=== PATIENT | male | born 1995 | race Hispanic/Latino ===

== ENCOUNTER 2019-09-19 19:26 | Emergency (ER) | payer BC ==
--- NOTE | 2019-09-19 20:38 | EDPHYS ---
Physician Documentation [facility] Name: Jovany Christopher Jr Age: 24 yrs Sex: Male : 1995 Arrival Date: 09/19/2019 Time: 19:29 Bed 28 Private MD: ED Physician Roby Mcmanus HPI: 09/19 19:42 This 24 yrs old Male presents to ER via Unassigned with complaints of Hand kb Injury, Hand Pain. 19:42 The patient or guardian reports pain, tenderness. The complaints affect the dorsal kb aspect of middle phalanx of left index finger. Context: The problem was sustained at work, resulted from a direct blow, by a heavy object. Onset: The symptoms/episode began/occurred 2 week(s) ago. Modifying factors: The symptoms are alleviated by nothing, the symptoms are aggravated by nothing. Associated signs and symptoms: The patient has no apparent associated signs or symptoms. Severity of symptoms: At their worst the symptoms were mild, in the emergency department the symptoms are unchanged. The patient has not experienced similar symptoms in the past. The patient has not recently seen a physician. Pt reports his finger got hurt a couple of weeks ago and he never got it checked out. Today he sat on it and it started hurting again. Historical: - Allergies: 19:46 No Known Allergies; tl2 - Home Meds: 19:46 None [Active]; tl2 - PMHx: 19:46 None; tl2 - PSHx: 19:46 None; tl2 - Immunization history:: Adult Immunizations up to date. - Social history:: Smoking status: Patient uses tobacco products, smokes one-half pack cigarettes per day. - Ebola Screening: : No symptoms or risks identified at this time. ROS: 19:42 Constitutional: Negative for fever, chills, and weight loss, Cardiovascular: Negative kb for chest pain, palpitations, and edema, Respiratory: Negative for shortness of breath, cough, wheezing, and pleuritic chest pain, Abdomen/GI: Negative for abdominal pain, nausea, vomiting, diarrhea, and constipation, Back: Negative for injury and pain, Skin: Negative for injury, rash, and discoloration, Neuro: Negative for headache, weakness, numbness, tingling, and seizure. 19:42 MS/extremity: Positive for injury or acute deformity, pain, tenderness, of the dorsal aspect of middle phalanx of left index finger. Exam: 19:42 Constitutional: This is a well developed, well nourished patient who is awake, alert, kb and in no acute distress. Head/Face: Normocephalic, atraumatic. ENT: Nares patent. No nasal discharge, no septal abnormalities noted. Tympanic membranes are normal and external auditory canals are clear. Oropharynx with no redness, swelling, or masses, exudates, or evidence of obstruction, uvula midline. Mucous membranes moist. Neck: Trachea midline, no thyromegaly or masses palpated, and no cervical lymphadenopathy. Supple, full range of motion without nuchal rigidity, or vertebral point tenderness. No Meningismus. Chest/axilla: Normal chest wall appearance and motion. Nontender with no deformity. No lesions are appreciated. Cardiovascular: Regular rate and rhythm with a normal S1 and S2. No gallops, murmurs, or rubs. Normal PMI, no JVD. No pulse deficits. Respiratory: Lungs have equal breath sounds bilaterally, clear to auscultation and percussion. No rales, rhonchi or wheezes noted. No increased work of breathing, no retractions or nasal flaring. Abdomen/GI: Soft, non-tender, with normal bowel sounds. No distension or tympany. No guarding or rebound. No evidence of tenderness throughout. Back: No spinal tenderness. No costovertebral tenderness. Full range of motion. Skin: Warm, dry with normal turgor. Normal color with no rashes, no lesions, and no evidence of cellulitis. Neuro: Awake and alert, GCS 15, oriented to person, place, time, and situation. Cranial nerves II-XII grossly intact. Motor strength 5/5 in all extremities. Sensory grossly intact. Cerebellar exam normal. Normal gait. 19:42 Musculoskeletal/extremity: Extremities: grossly normal except: noted in the dorsal aspect of middle phalanx of left index finger: pain, tenderness, ROM: intact in all extremities, Circulation is intact in all extremities. Sensation intact. Vital Signs: 19:46 BP 127 / 77; Pulse 85; Resp 18; Temp 98(O); Pulse Ox 100% on R/A; Weight 63.5 kg; tl2 Height 5 ft. 7 in. (170.18 cm); Pain 9/10; 19:48 BP 127 / 77; Pulse 86; Resp 17 S; Temp 98.1(O); Pulse Ox 100% on R/A; Weight 65.77 kg ca1 (R); Height 5 ft. 5 in. (165.10 cm) (R); Pain 0/10; 19:48 Body Mass Index 24.13 (65.77 kg, 165.10 cm) ca1 MDM: 19:37 Patient medically screened. kb 19:42 Data reviewed: vital signs, nurses notes. Data interpreted: Pulse oximetry: on room air kb is 100 %. Interpretation: normal. 20:31 Counseling: I had a detailed discussion with the patient and/or guardian regarding: the kb historical points, exam findings, and any diagnostic results supporting the discharge/admit diagnosis, radiology results, the need for outpatient follow up, a family practitioner, to return to the emergency department if symptoms worsen or persist or if there are any questions or concerns that arise at home. 09/19 19:39 Order name: Hand Left 3 View XRAY kb Administered Medications: No medications were administered Disposition: 09/20 04:59 Co-signature as Attending Physician, Roby Mcmanus MD I agree with the assessment and tw4 plan of care. Disposition: 09/19/19 20:37 Discharged to Home. Impression: Pain in left hand. - Condition is Stable. - Discharge Instructions: Musculoskeletal Pain. - Medication Reconciliation Form, Thank You Letter, Antibiotic Education, Prescription Opioid Use form. - Follow up: Emergency Department; When: As needed; Reason: Worsening of condition. Follow up: Private Physician; When: 2 - 3 days; Reason: Recheck today's complaints, Continuance of care, Re-evaluation by your physician. Signatures: Dispatcher [employer] EDMN Luzmaria Quijano FNP-C FNP-Sherice Sapp RN RN tl2 Roby Mcmanus MD MD tw4 Roman Bowers, RN RN tr5 Corrections: (The following items were deleted from the chart) 09/19 20:49 20:37 09/19/2019 20:37 Discharged to Home. Impression: Pain in left hand. Condition is tr5 Stable. Forms are Medication Reconciliation Form, Thank You Letter, Antibiotic Education, Prescription Opioid Use. Follow up: Emergency Department; When: As needed; Reason: Worsening of condition. Follow up: Private Physician; When: 2 - 3 days; Reason: Recheck today's complaints, Continuance of care, Re-evaluation by your physician. kb
--- NOTE | 2019-09-19 20:38 | ER ---
Nurse's Notes [facility] Name: Jovany Christopher Jr Age: 24 yrs Sex: Male : 1995 Arrival Date: 09/19/2019 Time: 19:29 Bed 28 Private MD: Diagnosis: Pain in left hand Presentation: 09/19 19:45 Presenting complaint: Patient states: smashed left 1st finger approx 1 month ago. c/o tl2 increased pain after working today. Transition of care: patient was not received from another setting of care. Onset of symptoms was September 19, 2019. Risk Assessment: Do you want to hurt yourself or someone else? Patient reports no desire to harm self or others. Initial Sepsis Screen: Does the patient meet any 2 criteria? No. Patient's initial sepsis screen is negative. Does the patient have a suspected source of infection? No. Patient's initial sepsis screen is negative. Care prior to arrival: None. 19:45 Method Of Arrival: Ambulatory tl2 19:45 Acuity: ALIYA 4 tl2 Triage Assessment: 19:46 Injury Description: Crush injury. tl2 Historical: - Allergies: 19:46 No Known Allergies; tl2 - Home Meds: 19:46 None [Active]; tl2 - PMHx: 19:46 None; tl2 - PSHx: 19:46 None; tl2 - Immunization history:: Adult Immunizations up to date. - Social history:: Smoking status: Patient uses tobacco products, smokes one-half pack cigarettes per day. - Ebola Screening: : No symptoms or risks identified at this time. Screenin:45 Abuse screen: Denies threats or abuse. Denies injuries from another. Nutritional ca1 screening: No deficits noted. Tuberculosis screening: No symptoms or risk factors identified. Fall Risk None identified. Assessment: 19:45 General: Appears in no apparent distress. comfortable, Behavior is calm, cooperative, ca1 appropriate for age. Pain: Complains of pain in dorsal aspect of middle phalanx of left index finger Pain currently is 0 out of 10 on a pain scale. at worst was 9 out of 10 on a pain scale. Derm: Skin is intact, is healthy with good turgor, Skin is pink, warm \T\ dry. Musculoskeletal: Circulation, motion, and sensation intact. Capillary refill < 3 seconds, Range of motion: intact in all extremities. Vital Signs: 19:46 BP 127 / 77; Pulse 85; Resp 18; Temp 98(O); Pulse Ox 100% on R/A; Weight 63.5 kg; tl2 Height 5 ft. 7 in. (170.18 cm); Pain 9/10; 19:48 BP 127 / 77; Pulse 86; Resp 17 S; Temp 98.1(O); Pulse Ox 100% on R/A; Weight 65.77 kg ca1 (R); Height 5 ft. 5 in. (165.10 cm) (R); Pain 0/10; 19:48 Body Mass Index 24.13 (65.77 kg, 165.10 cm) ca1 ED Course: 19:29 Patient arrived in ED. cf2 19:30 Luzmaria Quijano FNP-C is [facility]. kb 19:30 Roby Mcmanus MD is Attending Physician. kb 19:45 Patient has correct armband on for positive identification. Bed in low position. Call ca1 light in reach. Side rails up X 1. 19:46 Triage completed. tl2 19:46 Patient did not have IV access during this emergency room visit. ca1 19:47 Arm band placed on. ca1 20:15 Hand Left 3 View XRAY In Process Unspecified. EDMS 20:48 Roman Bowers RN is Primary Nurse. tr5 20:49 No provider procedures requiring assistance completed. tr5 Administered Medications: No medications were administered Outcome: 20:37 Discharge ordered by . kb 20:49 Discharged to home ambulatory. tr5 20:49 Condition: stable 20:49 Discharge instructions given to patient, Instructed on discharge instructions, follow up and referral plans. Demonstrated understanding of instructions, follow-up care. 20:49 Patient left the ED. tr5 Signatures: Dispatcher [employer] EDMS Luzmaria Quijano FNP-C FNP-Ckb Knox, Taylor, RN RN tl2 Zenia Espino RN RN ca1 Roman Bowers RN RN tr5 Anselmo Pagan cf2
[2019-09-19 21:18] VITALS: BP 127/77; O2SAT 100
[2019-09-19 21:24] VITALS: TEMP 98.1
--- NOTE | 2019-09-20 08:39 | RAD REPORT ---
EXAM DESCRIPTION: RAD - Hand Left 3 View - 09/19/2019 8:15 pm CLINICAL HISTORY: Persistent left hand pain following trauma several days earlier COMPARISON: None. FINDINGS: No fracture, dislocation or periosteal reaction noted. No foreign body or other soft tissu e abnormality. IMPRESSION: Negative left hand examination.
== END 2019-09-19 20:49 | disposition home or self-care (01) ==
LOC: ER 19:26
DX: M79.642 Pain in left hand (principal); F17.210 Nicotine dependence, cigarettes, uncomplicated
CPT/HCPCS: 99283